=== PATIENT | female | born 1950 | race Caucasian/White ===

== ENCOUNTER 2022-02-15 16:27 | Emergency (ER) | payer BC ==
[~2022-02-15] VITALS: Ht 149.9 cm; Wt 56.2 kg
--- NOTE | 2022-02-15 16:35 | NUR ---
Patient ambulatory alert and orientedx4 with complaints of injury on left fifth finger pain 7/10 with swelling noted, Left arm, left knee abrasion. Denies nausea/vomiting. Vitals stable.
--- NOTE | 2022-02-15 16:40 | NUR ---
MD at bedside, medical screening exam in process.
[2022-02-15] MEDS ORDERED: ACETAMINOPHEN 325 MG TABLET PO ONE (16:45)
[2022-02-15] MEDS ORDERED: TDAP DIPH,PERTUSS,TET VAC/PF 0.5 ML DISP.SYRIN IM ONE ×2 (16:45→17:19)
[2022-02-15] MEDS ORDERED: ACETAMINOPHEN 325 MG TABLET ONE (17:15)
--- NOTE | 2022-02-15 17:44 | NUR ---
Patient refused tdap vaccine, according to patient she got tdap vaccine year 2015.
--- NOTE | 2022-02-15 17:50 | NUR ---
Dressing applied on left wrist and left knee. Splint was applied on left 5th finger then wrapped with coflex bandage.
--- NOTE | 2022-02-15 19:27 | NUR ---
Patient discharged to home in stable condition with family taking patient home. Written and verbal after care instructions given. Patient verbalizes understanding of instructions. Stressed follow up or return to ER for worsening s/s.
[2022-02-15 19:29] VITALS: BP 140/78
== END 2022-02-15 19:29 | disposition home or self-care (01) ==
LOC: ER 16:30
DX: S62.611A Displaced fracture of proximal phalanx of left index finger, initial encounter for closed fracture (principal); S80.212A Abrasion, left knee, initial encounter; S61.402A Unspecified open wound of left hand, initial encounter; W01.0XXA Fall on same level from slipping, tripping and stumbling without subsequent striking against object, initial encounter; Y93.K1 Activity, walking an animal; Y92.89 Other specified places as the place of occurrence of the external cause; Z91.040 Latex allergy status; Z85.3 Personal history of malignant neoplasm of breast; H40.9 Unspecified glaucoma; J45.909 Unspecified asthma, uncomplicated; Z88.8 Allergy status to other drugs, medicaments and biological substances; Z91.018 Allergy to other foods
CPT/HCPCS: 73090; 73110; 73130; 90715